=== PATIENT | female | born 1950 | race Caucasian/White ===

== ENCOUNTER → 2018-09-19 | Outpatient (CLI) | payer MEDICARE, MEDICAID ==
[~2018-09-19] MED LIST: ALDACTONE25 M1 PO; ELIQUIS5 M1 PO; FERRO-TIME325 MG PO; FUROSEMIDE40 MG PO; GOOD NEIGHBOR P20 MG PO; LEVOTHYROXINE50 MCG PO; LISINOPRIL20 MG PO; NEURONTIN300 MG PO; PROVENTIL HFA6.7 GM IH; SIMVASTATIN20 MG PO
[2018-09-19 13:26] LABS: FREE T4 0.62 ng/dl (0.76-1.46); THYROID STIM HORMONE (HS) 10.1 uIU/ml (0.358-4.75)
[2018-09-20 08:10] LABS: THYROID PEROXIDASE (TPO) AB 13 IU/mL (0-34)
[2018-09-20 15:07] LABS: THYROGLOBULIN ANTIBODY <1.0 IU/mL (0.0-0.9)
== END | disposition home or self-care (01) ==
LOC: LAB 12:21
PROVIDERS: Internal Medicine Endocrinology, Diabetes & Metabolism
DX: M81.0 Age-related osteoporosis without current pathological fracture (principal); E03.9 Hypothyroidism, unspecified

== ENCOUNTER → 2018-09-25 | Outpatient (CLI) | payer MEDICARE, MEDICAID ==
[2018-09-26 10:06] LABS: CREATININE,URINE 31.9 mg/dL (Not Estab.)
== END | disposition home or self-care (01) ==
LOC: LAB 00:54
PROVIDERS: Internal Medicine Endocrinology, Diabetes & Metabolism
DX: M81.0 Age-related osteoporosis without current pathological fracture (principal)

== ENCOUNTER → 2019-02-25 | Outpatient (CLI) | payer MEDICARE, MEDICAID ==
[2019-02-25 07:38] LABS: ALBUMIN 3.9 gm/dl (3.1-4.5); CREATININE 1.19 mg/dL (0.55-1.02); POTASSIUM 4.2 mmol/L (3.5-5.1); TOTAL PROTEIN 7.3 gm/dL (6.4-8.2)
[2019-02-25 07:45] LABS: FREE T4 0.74 ng/dl (0.76-1.46); THYROID STIM HORMONE (HS) 6.74 uIU/ml (0.358-4.75)
[2019-02-26 11:10] LABS: CREATININE,URINE 77.2 mg/dL (Not Estab.); MICRO ALBUMIN/CRE RATIO 8.3 (0.0-30.0)
== END | disposition home or self-care (01) ==
LOC: LAB 06:50
PROVIDERS: Internal Medicine Endocrinology, Diabetes & Metabolism
DX: E03.9 Hypothyroidism, unspecified (principal); E10.65 Type 1 diabetes mellitus with hyperglycemia; E55.9 Vitamin D deficiency, unspecified; M81.0 Age-related osteoporosis without current pathological fracture